=== PATIENT | female | born 1955 | race Caucasian/White ===

== ENCOUNTER → 2018-03-25 | Outpatient (CLI) | payer MEDICARE, MEDICAID ==
[~2018-03-25] MED LIST: ABILIFY MAINTE300 M1 IM; BENZTROPINE ME0.5 MG PO; CALCIUM CITRAT100 GM PO; COLLAGEN PO; DEPLIN-ALGAL O1 EACH PO; FISH OIL 1,001000 M2 PO; FLONASE 0.05%50 MCG NASAL; KLOR-CON 1010 MEQ PO; LIPITOR10 MG PO; MAGOX 400400 MG PO; MELATONIN5 M1 PO; NEURONTIN 300300 M1 PO; OPTIFLEX-C400 MG PO; PRILOSEC 20 MG20 MG PO; PRINIVIL20 M1 PO; SYNTHROID100 MC1 PO; TRILEPTAL300 MG PO; TYLENOL325 MG PO; UNICOMPLEX M TA1 TA1 PO; VISTARIL50 MG PO; VITAMIN D2000 UNIT PO; VITAMIN E400 UNIT PO; WELLBUTRIN XL300 MG PO; [UNRECOGNIZED DRUG - OTHER] TOP
== END ==
LOC: M.MRI 11:30
DX: S83.242A Other tear of medial meniscus, current injury, left knee, initial encounter (principal); M21.862 Other specified acquired deformities of left lower leg; M22.42 Chondromalacia patellae, left knee; M25.462 Effusion, left knee; X58.XXXA Exposure to other specified factors, initial encounter; Y93.89 Activity, other specified; Y92.89 Other specified places as the place of occurrence of the external cause; Y99.8 Other external cause status